=== PATIENT | female | born 1960 | race Caucasian/White ===

== ENCOUNTER 2017-05-21 07:41 | Day surgery (SDC) | payer OTHER ==
[2017-05-21] MEDS ORDERED: Dextrose 5%-Lactated Ringers 1,000 ML IV SCH (08:30)
[2017-05-21] MEDS ORDERED: Glycopyrrolate 0.2 MG/ML 2 ML SDV IVPUSH ONE (09:15)
[2017-05-21] MEDS ORDERED: fentaNYL 100 MCG/2 ML SDV ONE (09:33)
[2017-05-21] MEDS ORDERED: Midazolam 1 MG/ML 2 ML SDV ONE (09:33)
[2017-05-21] MEDS ORDERED: Propofol 200 MG/20 ML SDV ONE ×2 (09:33→10:22)
[2017-05-21] MEDS ORDERED: Ondansetron 4 MG/2 ML SDV ONE (11:13)
[2017-05-21 13:32] VITALS: BP 122/75
--- NOTE | 2017-05-24 14:11 | OR ---
DATE OF PROCEDURE: 05/21/2017 PREOPERATIVE DIAGNOSIS: Iron-deficiency anemia. POSTOPERATIVE DIAGNOSES: Iron-deficiency anemia associated with; 1. Normal upper GI endoscopy status post gastric bypass. 2. Normal colonoscopy exam. OPERATIVE PROCEDURES: 1. Upper GI endoscopy with biopsies of gastric pouch for CLOtest. 2. Flexible colonoscopy. ANESTHESIA: IV sedation. INDICATION FOR PROCEDURE: A 56-year-old female status post gastric bypass in 2005 presenting with iron-deficiency anemia with a recent ferritin measured at 7. This was associated with positive fit test as well. The plan is to proceed with upper GI endoscopy along with colonoscopy to further identify if there are any GI bleeding sources. Potential risks of the procedure including bleeding and perforation were discussed and the patient wishes to proceed. DETAILS OF PROCEDURE: The patient was taken to the operating room and placed in a left lateral decubitus position. IV sedation was administered after which the upper GI endoscope was passed orally through the length of the esophagus and into the gastric pouch, and gastrojejunostomy and from there allowing 20 cm into the Simona limb. Overall, the findings were entirely normal. There were no areas of inflammation, ulceration, or stricturing during the course of the upper endoscopic exam. Biopsies were obtained from the gastric pouch and sent for CLOtest for H. pylori. Minimal bleeding from the biopsy sites was seen and procedure then concluded. Attention was then taken to the colonoscopy. Initial digital rectal exam was performed and was unremarkable. Colonoscope was then passed to the level of the cecum. The prep was fairly good with there only being a small amount of liquid stool present. The findings likewise here were entirely normal. There was no diverticula, no areas of colitis, and no polyps or other signs of neoplasia. The scope was then withdrawn, the above findings reconfirmed, and the procedure then concluded. At this point, there was no obvious upper GI or lower GI bleeding sources identified on these exams. One will need to keep in mind the possibility of some bleeding from the bypassed portion of the stomach or duodenum. The patient will be given Feraheme 510 mg a day and then she will be following up with Kalli Armijo at [facility] in [place] on 06/23/2017 and will continue getting a CBC, B12, and ferritin levels at that time. If patient remains compliant on oral iron and the iron levels continue to drop, we will need to begin looking at the possibility of the bypassed stomach or duodenum being involved in GI bleeding. Stephon Waddell MD /[id number]
== END 2017-05-21 13:10 | disposition home or self-care (01) ==
LOC: JP.SDS 07:41
PROVIDERS: ATTEND Surgery
DX: D50.9 Iron deficiency anemia, unspecified (principal); Z98.84 Bariatric surgery status
CPT/HCPCS: 36415; 43239; 45378; 80053; 85027; 87081; J2250; J2405; J2704; J3010; J7030; J7042; Q0138; J3490